=== PATIENT | female | born 1945 | race African-American/Black ===

== ENCOUNTER 2025-04-17 12:49 | Emergency (ER) | payer MEDICARE, BC, OTHER ==
[~2025-04-17] VITALS: Ht 149.9 cm; Wt 49.1 kg
[~2025-04-17 12:49] MED LIST: CLOTRIMAZOLE10 MG PO
[2025-04-17 12:55] VITALS: TEMP 97.7; O2SAT 99
[2025-04-17] MEDS ORDERED: BENICAR5 MG PO (13:05)
[2025-04-17] MEDS: ACETAMINOPHEN 325 MG TAB PO ONE (13:21)
[2025-04-17 13:39] VITALS: PULSE 72; RESP 16
== END 2025-04-17 14:30 | disposition home or self-care (01) ==
LOC: FSED 12:58
DX: M25.531 Pain in right wrist (principal); S62.134A Nondisplaced fracture of capitate [os magnum] bone, right wrist, initial encounter for closed fracture; W01.0XXA Fall on same level from slipping, tripping and stumbling without subsequent striking against object, initial encounter; Y92.89 Other specified places as the place of occurrence of the external cause; I10 Essential (primary) hypertension; E78.5 Hyperlipidemia, unspecified; M06.9 Rheumatoid arthritis, unspecified
CPT/HCPCS: 99284